=== PATIENT | male | born 1965 | race Caucasian/White ===

== ENCOUNTER → 2016-08-02 | Outpatient (REF) | payer BC | LOC: M LAB REF 12:19 | PROVIDERS: ATTEND Otolaryngology | DX: R22.9 Localized swelling, mass and lump, unspecified (principal) ==

== ENCOUNTER 2017-07-18 06:51 | Day surgery (SDC) | payer BC ==
[2017-07-18] MEDS: NS 1,000 ML IV (07:23)
[2017-07-18] MEDS ORDERED: LIDOCAINE 2% INJ 100 MG/5 ML SDV (FOR ANES.) As Ordered (07:45)
[2017-07-18] MEDS ORDERED: PROPOFOL 200 MG/20 ML VIAL As Ordered ×4 (07:45→07:53)
== END 2017-07-18 08:39 | disposition home or self-care (01) ==
LOC: M OPP 06:51
DX: Z12.11 Encounter for screening for malignant neoplasm of colon (principal); D12.2 Benign neoplasm of ascending colon; R12 Heartburn; K22.8 Other specified diseases of esophagus; K44.9 Diaphragmatic hernia without obstruction or gangrene; K31.89 Other diseases of stomach and duodenum; I10 Essential (primary) hypertension; K21.9 Gastro-esophageal reflux disease without esophagitis; Z87.891 Personal history of nicotine dependence; Z79.899 Other long term (current) drug therapy; Z80.42 Family history of malignant neoplasm of prostate
CPT/HCPCS: 45385

== ENCOUNTER → 2017-11-25 | Outpatient (REF) | payer BC | LOC: M SFHCLERA 10:31 | DX: R53.81 Other malaise (principal) ==

== ENCOUNTER → 2018-01-02 | Outpatient (REF) | payer BC | LOC: M LAB REF 18:03 | DX: D10.0 Benign neoplasm of lip (principal) | CPT/HCPCS: 88305 ==

== ENCOUNTER 2021-04-29 19:58 | Emergency (ER) | payer BC ==
[~2021-04-29] VITALS: Ht 167.6 cm; Wt 100.0 kg
[~2021-04-29 19:58] MED LIST: CENT1TAB20 PO; OMEP40CA4 PO; VERA120T71 PO
--- OUTSIDE RECORDS SUMMARY | 2021-04-29 20:05 | CCD ---
Author Author [facility] Organization [facility] Address Unknown Phone Unavailable Care Team Providers Care Meat Processor Name Role Phone Zafar Tristan M.D. Unavailable Unavailable Zafar Tristan M.D. Unavailable Unavailable Zafar Tristan M.D. Unavailable Unavailable Feola, T Jovanna PA Unavailable Unavailable Feola, T Jovanna PA Unavailable Unavailable Feola, T Jovanna PA Unavailable Unavailable Feola, T Jovanna PA Unavailable Unavailable Feola, T Jovanna PA Unavailable Unavailable Feola, T Jovanna PA Unavailable Unavailable Feola, T Jovanna PA Unavailable Unavailable Feola, T Jovanna PA Unavailable Unavailable Feola, T Jovanna PA Unavailable Unavailable Feola, T Jovanna PA Unavailable Unavailable Feola, T Jovanna PA Unavailable Unavailable Feola, T Jovanna PA Unavailable Unavailable Feola, T Jovanna PA Unavailable Unavailable Feola, T Jovanna PA Unavailable Unavailable Feola, T Jovanna PA Unavailable Unavailable Feola, T Jovanna PA Unavailable Unavailable Feola, T Jovanna PA Unavailable Unavailable Feola, T Jovanna PA Unavailable Unavailable Feola, T Jovanna PA Unavailable Unavailable Feola, T Jovanna PA Unavailable Unavailable Feola, T Jovanna PA Unavailable Unavailable Feola, T Jovanna PA Unavailable Unavailable Feola, T Jovanna PA Unavailable Unavailable Feola, T Jovanna PA Unavailable Unavailable Feola, T Jovanna PA Unavailable Unavailable Feola, T Jovanna PA Unavailable Unavailable Feola, T Jovanna PA Unavailable Unavailable Feola, T Jovanna PA Unavailable Unavailable Feola, T Jovanna PA Unavailable Unavailable Feola, T Jovanna PA Unavailable Unavailable Feola, T Jovanna PA Unavailable Unavailable Feola, T Jovanna PA Unavailable Unavailable Feola, T Jovanna PA Unavailable Unavailable Feola, T Jovanna PA Unavailable Unavailable Feola, T Jovanna PA Unavailable Unavailable Feola, T Jovanna PA Unavailable Unavailable Feola, T Jovanna PA Unavailable Unavailable Feola, T Jovanna PA Unavailable Unavailable Feola, T Jovanna PA Unavailable Unavailable Feola, T Jovanna PA Unavailable Unavailable Feola, T Jovanna PA Unavailable Unavailable Re-disclosure Warning The records that you are about to access may contain information from federally-assisted alcohol or drug abuse programs. If such information is present, then the following federally mandated warning applies: This information has been disclosed to you from records protected by federal confidentiality rules (42 CFR part 2). The federal rules prohibit you from making any further disclosure of this information unless further disclosure is expressly permitted by the written consent of the person to whom it pertains or as otherwise permitted by 42 CFR part 2. A general authorization for the release of medical or other information is NOT sufficient for this purpose. The Federal rules restrict any use of the information to criminally investigate or prosecute any alcohol or drug abuse patient.The records that you are about to access may contain highly sensitive health information, the redisclosure of which is protected by Article 27-F of the [facility] Public Health law. If you continue you may have access to information: Regarding HIV / AIDS; Provided by facilities licensed or operated by the [facility] Office of Mental Health; or Provided by the [facility] Office for People With Developmental Disabilities. If such information is present, then the following [facility] mandated warning applies: This information has been disclosed to you from confidential records which are protected by state law. State law prohibits you from making any further disclosure of this information without the specific written consent of the person to whom it pertains, or as otherwise permitted by law. Any unauthorized further disclosure in violation of state law may result in a fine or fdc sentence or both. A general authorization for the release of medical or other information is NOT sufficient authorization for further disc losure. Allergies and Adverse Reactions Type Description Substance Reaction Status Data Source(s ) Propensity to adverse reactions Propensity to adverse reacti ons No Known Intolerances [facility] Family History Family Member Name Family Member Gender Family Member Status Date o f Status Description Data Source(s) Unknown Unknown Problem [facility] ([facility]) Unknown Female Problem [facility] ([facility]) Unknown Female Problem [facility]ENT ([facility] ) [facility] Unknown Problem [facility] ([facility] Unknown [facility] Problem [facility] ([facility]) Unknown Unknown Problem [facility] ([facility]) Unknown Unknown Problem [facility] ([facility]) Unknown Unknown Problem [facility] ([facility]) Encounters Encounter Providers Location Date Indications Data Source(s ) Emergency Attender: Devin Tristan M.D. SURG-ER 01/31/2021 11:21:0 0 AM EDT [facility] Patient discharged. Emergency Attender: Devin Tristan M.D. SURG-ER 11:21:00 AM EDT - 01/31/2021 02:05:00 PM EDT [facility] Outpatient Attender: Jovanna BAILEY 021 11:18:12 AM EDT - 12/10/2020 11:52:59 AM EDT [facility] ([facility] ) Immunizations Vaccine Date Status Description Data Source(s) INFLUENZA VIRUS VACCINE QUADRIVAL [id number](6 MOS AND UP)/PF 03/04/2020 12:00:00 AM EDT completed [facility] Medications Medication Brand Name Start Date Product Form Dose Route Admi nistrative Instructions Pharmacy Instructions Status Indications Reaction Description Data Source(s) 37.5 mg 04/24/2021 12:00:00 AM EST capsule,extended releas e 24hr 30 TAKE ONE CAPSULE BY MOUTH EVERY DAY WITH FOOD TAKE ONE CAPSULE BY MOUTH EVERY DAY WITH FOOD SOLD: 04/27/2021 [facility] 40 mg 02/23/2021 12:00:00 AM EDT capsule,delayed release (DR/EC) 90 TAKE ONE CAPSULE BY MOUTH EVERY DAY TAKE ONE CAPSULE BY MOUTH EVERY DAY SOLD: 02/24/2021 [facility] 37.5 mg 02/22/2021 12:00:00 AM EDT capsule,extended releas e 24hr 30 TAKE ONE CAPSULE BY MOUTH ONCE DAILY WITH FOOD TAKE ONE CAPSULE BY MOUTH ONCE DAILY WIT H FOOD SOLD: 02/24/2021 [facility] 37.5 mg 02/22/2021 12:00:00 AM EDT capsule,extended releas e 24hr 30 TAKE ONE CAPSULE BY MOUTH ONCE DAILY WITH FOOD TAKE ONE CAPSULE BY MOUTH ONCE DAILY WIT H FOOD SOLD: 03/28/2021 [facility] 10 mg 02/11/2021 12:00:00 AM EDT tablet 57 TAKE DIRECTED 6 TABLETS BY MOUTH ONCE DAILY FOR 1 WEEK, THEN TAPER BY 1 TABLET BY MOUTH DAILY FOR THE NEXT 5 DAYS TAKE DIRECTED 6 TABLETS BY MOUTH ONCE DAILY FOR 1 WEEK, THEN TAPER BY 1 TABLET BY MOUTH DAILY FOR THE NEXT 5 DAYS SOLD: 02/11/2021 [facility] atorvastatin 20 MG Oral Tablet ATORVASTATIN CALCIUM 01/08/2021 1 2:00:00 AM EDT tablet 30 TAKE ONE TABLET BY MOUTH EVERY D AY TAKE ONE TABLET BY MOUTH EVERY DAY SOLD: 03/09/2021 [facility] atorvastatin 20 MG Oral Tablet ATORVASTATIN CALCIUM 01/08/2021 1 2:00:00 AM EDT tablet 30 TAKE ONE TABLET BY MOUTH EVERY D AY TAKE ONE TABLET BY MOUTH EVERY DAY SOLD: 02/06/2021 [facility] atorvastatin 20 MG Oral Tablet ATORVASTATIN CALCIUM 01/08/2021 1 2:00:00 AM EDT tablet 30 TAKE ONE TABLET BY MOUTH EVERY D AY TAKE ONE TABLET BY MOUTH EVERY DAY SOLD: 01/08/2021 [facility] atorvastatin 20 MG Oral Tablet ATORVASTATIN CALCIUM 01/08/2021 1 2:00:00 AM EDT tablet 30 TAKE ONE TABLET BY MOUTH EVERY D AY TAKE ONE TABLET BY MOUTH EVERY DAY SOLD: 04/08/2021 [facility] 240 mg 12/25/2020 12:00:00 AM EDT tablet extended release 30 TAKE ONE TABLET BY MOUTH EVERY DAY TAKE ONE TABLET BY MOUTH EVERY DAY SOLD: 04/27/2021 [facility] 240 mg 12/25/2020 12:00:00 AM EDT tablet extended release 30 TAKE ONE TABLET BY MOUTH EVERY DAY TAKE ONE TABLET BY MOUTH EVERY DAY SOLD: 03/28/2021 [facility] 37.5 mg 12/25/2020 12:00:00 AM EDT capsule,extended releas e 24hr 30 TAKE ONE CAPSULE BY MOUTH EVERY DAY WITH FOOD TAKE ONE CAPSULE BY MOUTH EVERY DAY WITH FOOD SOLD: 01/26/2021 [facility] 37.5 mg 12/25/2020 12:00:00 AM EDT capsule,extended releas e 24hr 30 TAKE ONE CAPSULE BY MOUTH EVERY DAY WITH FOOD TAKE ONE CAPSULE BY MOUTH EVERY DAY WITH FOOD SOLD: 12/29/2020 [facility] 240 mg 12/25/2020 12:00:00 AM EDT tablet extended release 30 TAKE ONE TABLET BY MOUTH EVERY DAY TAKE ONE TABLET BY MOUTH EVERY DAY SOLD: 01/26/2021 [facility] 240 mg 12/25/2020 12:00:00 AM EDT tablet extended release 30 TAKE ONE TABLET BY MOUTH EVERY DAY TAKE ONE TABLET BY MOUTH EVERY DAY SOLD: 12/29/2020 [facility] 240 mg 12/25/2020 12:00:00 AM EDT tablet extended release 30 TAKE ONE TABLET BY MOUTH EVERY DAY TAKE ONE TABLET BY MOUTH EVERY DAY SOLD: 02/24/2021 [facility] 800-160 mg 12/10/2020 12:00:00 AM EDT tablet 20 TAKE ONE TABLET BY MOUTH TWICE A DAY FOR 10 DAYS TAKE ONE TABLET BY MOUTH TWICE A DAY FOR 10 DAYS SOLD: 12/10/2020 [facility] 37.5 mg 10/27/2020 12:00:00 AM EDT capsule,extended releas e 24hr 30 TAKE ONE CAPSULE BY MOUTH EVERY DAY WITH FOOD TAKE ONE CAPSULE BY MOUTH EVERY DAY WITH FOOD SOLD: 10/29/2020 [facility] 37.5 mg 10/27/2020 12:00:00 AM EDT capsule,extended releas e 24hr 30 TAKE ONE CAPSULE BY MOUTH EVERY DAY WITH FOOD TAKE ONE CAPSULE BY MOUTH EVERY DAY WITH FOOD SOLD: 11/28/2020 [facility] 40 mg 08/30/2020 12:00:00 AM EDT capsule,delayed release (DR/EC) 90 TAKE ONE CAPSULE BY MOUTH EVERY DAY TAKE ONE CAPSULE BY MOUTH EVERY DAY SOLD: 08/30/2020 [facility] 40 mg 08/30/2020 12:00:00 AM EDT capsule,delayed release (DR/EC) 90 TAKE ONE CAPSULE BY MOUTH EVERY DAY TAKE ONE CAPSULE BY MOUTH EVERY DAY SOLD: 11/28/2020 [facility] 240 mg 07/30/2020 12:00:00 AM EST tablet extended release 30 TAKE ONE TABLET BY MOUTH EVERY DAY TAKE ONE TABLET BY MOUTH EVERY DAY SOLD: 11/28/2020 [facility] 240 mg 07/30/2020 12:00:00 AM EST tablet extended release 30 TAKE ONE TABLET BY MOUTH EVERY DAY TAKE ONE TABLET BY MOUTH EVERY DAY SOLD: 10/29/2020 [facility] 240 mg 07/30/2020 12:00:00 AM EST tablet extended release 30 TAKE ONE TABLET BY MOUTH EVERY DAY TAKE ONE TABLET BY MOUTH EVERY DAY SOLD: 09/29/2020 [facility] 240 mg 07/30/2020 12:00:00 AM EST tablet extended release 30 TAKE ONE TABLET BY MOUTH EVERY DAY TAKE ONE TABLET BY MOUTH EVERY DAY SOLD: 08/30/2020 [facility] 240 mg 07/30/2020 12:00:00 AM EST tablet extended release 30 TAKE ONE TABLET BY MOUTH EVERY DAY TAKE ONE TABLET BY MOUTH EVERY DAY SOLD: 07/31/2020 [facility] 37.5 mg 07/28/2020 12:00:00 AM EST capsule,extended releas e 24hr 30 TAKE ONE CAPSULE BY MOUTH EVERY DAY WITH FOOD TAKE ONE CAPSULE BY MOUTH EVERY DAY WITH FOOD SOLD: 09/29/2020 [facility] 37.5 mg 07/28/2020 12:00:00 AM EST capsule,extended releas e 24hr 30 TAKE ONE CAPSULE BY MOUTH EVERY DAY WITH FOOD TAKE ONE CAPSULE BY MOUTH EVERY DAY WITH FOOD SOLD: 08/30/2020 [facility] 37.5 mg 07/28/2020 12:00:00 AM EST capsule,extended releas e 24hr 30 TAKE ONE CAPSULE BY MOUTH EVERY DAY WITH FOOD TAKE ONE CAPSULE BY MOUTH EVERY DAY WITH FOOD SOLD: 07/31/2020 [facility] 40 mg 05/31/2020 12:00:00 AM EST capsule,delayed release (DR/EC) 90 TAKE ONE CAPSULE BY MOUTH EVERY DAY TAKE ONE CAPSULE BY MOUTH EVERY DAY SOLD: 06/03/2020 [facility] 37.5 mg 03/24/2020 12:00:00 AM EDT capsule,extended releas e 24hr 30 TAKE ONE CAPSULE BY MOUTH EVERY DAY WITH FOOD TAKE ONE CAPSULE BY MOUTH EVERY DAY WITH FOOD SOLD: 07/01/2020 [facility] 37.5 mg 03/24/2020 12:00:00 AM EDT capsule,extended releas e 24hr 30 TAKE ONE CAPSULE BY MOUTH EVERY DAY WITH FOOD TAKE ONE CAPSULE BY MOUTH EVERY DAY WITH FOOD SOLD: 05/30/2020 [facility] 37.5 mg 03/24/2020 12:00:00 AM EDT capsule,extended releas e 24hr 30 TAKE ONE CAPSULE BY MOUTH EVERY DAY WITH FOOD TAKE ONE CAPSULE BY MOUTH EVERY DAY WITH FOOD SOLD: 04/29/2020 [facility] 37.5 mg 03/24/2020 12:00:00 AM EDT capsule,extended releas e 24hr 30 TAKE ONE CAPSULE BY MOUTH EVERY DAY WITH FOOD TAKE ONE CAPSULE BY MOUTH EVERY DAY WITH FOOD SOLD: 03/29/2020 [facility] 240 mg 01/23/2020 12:00:00 AM EDT tablet extended release 30 TAKE ONE TABLET BY MOUTH EVERY DAY TAKE ONE TABLET BY MOUTH EVERY DAY SOLD: 05/30/2020 [facility] 240 mg 01/23/2020 12:00:00 AM EDT tablet extended release 30 TAKE ONE TABLET BY MOUTH EVERY DAY TAKE ONE TABLET BY MOUTH EVERY DAY SOLD: 04/29/2020 [facility] 240 mg 01/23/2020 12:00:00 AM EDT tablet extended release 30 TAKE ONE TABLET BY MOUTH EVERY DAY TAKE ONE TABLET BY MOUTH EVERY DAY SOLD: 03/29/2020 [facility] 240 mg 01/23/2020 12:00:00 AM EDT tablet extended release 30 TAKE ONE TABLET BY MOUTH EVERY DAY TAKE ONE TABLET BY MOUTH EVERY DAY SOLD: 07/01/2020 [facility] 40 mg 11/16/2019 12:00:00 AM EDT capsule,delayed release (DR/EC) 90 TAKE 1 CAPSULE BY MOUTH ONCE A DAY TAKE 1 CAPSULE BY MOUTH ONCE A DAY SOLD: 03/04/2020 [facility] Insurance Providers Payer name Policy type / Coverage type Policy ID Covered constitution party ID Covered constitution party's relationship to millan Policy Millan Plan Information [facility] FEDERAL EMPLOYEE PROGRAM [id number] Formerly [facility] and Blue Shield - [place] Blue Cross/B lue Shield [id number] Self [id number] [employer] FEP BS [id number] 18 [id number] BLUE CROSS BLUE SHIELD FEDERAL -O/P [id number] 18 [id number] BLUE [employer]OSS BLUE SHIELD FEDERAL-RECURRING [id number] 18 [id number] BLUE CROSS BLUE SHIELD FEDERAL -CLINIC [id number] 18 [id number] [employer] BLUES[place] BS [id number] 18 [id number] EMPIRE BLUE CROSS BLUE SHIELD -O/P [id number] 18 [id number] [employer] BLUES[place] BS UNAVAILABLE 18 UNAVAILABLE ANSI-Not a Secondary Insurance [id number] ANSI-Not a Secondary Insurance [id number] ANSI-Not a Secondary Insurance [id number] ANSI-Not a Secondary Insurance [id number] ANSI-Not a Secondary Insurance [id number] ANSI-Not a Secondary Insurance [id number] ANSI-Not a Secondary Insurance [id number] ANSI-Not a Secondary Insurance [id number] ANSI-Not a Secondary Insurance [id number] ANSI-Not a Secondary Insurance [id number] ANSI-Not a Secondary Insurance [id number] ANSI-Not a Secondary Insurance [id number] ANSI-Not a Secondary Insurance [id number] ANSI-Not a Secondary Insurance [id number] ANSI-Not a Secondary Insurance [id number] ANSI-Not a Secondary Insurance [id number] ANSI-Not a Secondary Insurance [id number] ANSI-Not a Secondary Insurance [id number] ANSI-Not a Secondary Insurance [id number] ANSI-Not a Secondary Insurance [id number] ANSI-Not a Secondary Insurance [id number] ANSI-Not a Secondary Insurance [id number] ANSI-Not a Secondary Insurance [id number] ANSI-Not a Secondary Insurance [id number] ANSI-Not a Secondary Insurance [id number] ANSI-Not a Secondary Insurance [id number] ANSI-Not a Secondary Insurance [id number] ANSI-Not a Secondary Insurance [id number] ANSI-Not a Secondary Insurance [id number] ANSI-Not a Secondary Insurance [id number] ANSI-Not a Secondary Insurance [id number] ANSI-Not a Secondary Insurance [id number] ANSI-Not a Secondary Insurance [id number] ANSI-Not a Secondary Insurance [id number] ANSI-Not a Secondary Insurance [id number] ANSI-Not a Secondary Insurance [id number] ANSI-Not a Secondary Insurance [id number] ANSI-Not a Secondary Insurance [id number] ANSI-Not a Secondary Insurance [id number] ANSI-Not a Secondary Insurance [id number] ANSI-Not a Secondary Insurance [id number] ANSI-Not a Secondary Insurance [id number] [facility] Health Maintenance Organization ([facility] [id number] Self [id number] [facility] EMPLOYEE PROGRAM [id number] SP [id number] [facility] Commercial [id number] Self [id number] [employer] [facility] [id number] SP [id number] [facility] Health Maintenance Organization ([facility]) [id number] Self [id number] [facility] Health Maintenance Organization ([facility]) [id number] Self [facility] Plan Commercial [id number] Self [facility] EMPLOYEE PROGRAM [id number] SP [id number] [facility] [id number] SP [id number] [facility] [id number] SP [id number] Problems, Conditions, and Diagnoses No Information Surgeries/Procedures No Information Results ID Date Data Source [id number] 01/31/2021 12:16:00 PM EDT [facility]. HEAD CT SCANThere is no focal lesion of abnormal increased or decreased density.There is some physiologic mild calcification at the basal gangliabilaterally. There is no mass, mass effect, midline shift, extraaxialfluid collection or intracranial hemorrhage. The ventricles are normalsize and configuration. The orbits are unremarkable. There is mildmucosal thickening at the ethmoidal air cells. No suspicious osseouslesion or acute fracture is seen.IMPRESSION: NO ACUTE DISEASE PROCESS.Dictated on 01/31/21 1216 by Vinod White M.D.Transcribed on 02/01/21 1411 by Lakeisha Kraus MSign by Vinod White M.D. on 02/02/21 1152Sign by: Vinod White M.D. Name Value Range Interpretation Code Description Data Analisa rce(s) Supporting Document(s) Procedure Social History No Information
--- OUTSIDE RECORDS SUMMARY | 2021-04-29 20:05 | CCD | Continuity of Care Document ---
Author Author [facility] [place] [address] Care Team Providers Care Clinical Services Manager Name Role Phone NONE Unavailable Unavailable Insurance Providers Payer Name Policy Number Subscriber Name Relationship [facility] [id number] HEMANTH CHOI SELF Advance Directives Directive Response Recorded Date/Time Existing Advanced Directive: N 01/31/21 11 :21am Chief Complaint and Reason for Visit Reason for Visit DROOPING FACE, Problems No problem information available. Medications No medication information available. Social History No social history. Hospital Discharge Instructions No hospital discharge instructions. Plan of Care Discharge Date 01/31/21 Disposition HOME/SELF CARE Prescriptions See Medications Section Functional Status No functional status results. Allergies, Adverse Reactions, Alerts Allergen Type Severity Reaction Status Last Updated No Known Intolerances Allergy Unknown Active Immunizations No Known History of Immunizations. Vital Signs No Known Vital Signs Results. Results Laboratory Results Test Name Result Units Flags Reference Collection Date/Time Result Date/Time Comments White Blood Count 12.25 x10E3/ul H 3.80-10.80 01/31/21 11 :30am 01/31/21 11:53am Red Blood Count 5.07 x10E6/ul 4.69-6.13 01/31/21 11:30am /07/03 11:53am Hemoglobin 15.6 g/dl 14.1-18.1 01/31/21 11:30am 01/31/21 1 1:53am Hematocrit 43.9 % 43.5-53.7 01/31/21 11:30am 01/31/21 1 1:53am Mean Corpuscular Volume 87 fl 80-97 01/31/21 11:30am 01/31/21 11:53am Mean Corpuscular Hemoglobin 30.8 pg 27.0-31.2 11:30am 01/31/21 11:53am Bedside Mean Corpuscular Hgb Conc 35.5 g/dl H 31.8-3 5.4 01/31/21 11:30am 01/31/21 11:53am Red Cell Distribution Width 13.6 % 9.0-16.0 01/31/21 11 :30am 01/31/21 11:53am Platelet Count 350 x10E3/ul 150-400 01/31/21 11:30am 1 11:53am Mean Platelet Volume 8.0 fl 7.2-11.1 01/31/21 11:30am 0 01/31/21 11:53am Neutrophils % 57.5 % 37.0-74.9 01/31/21 11:30am 1 11:53am Lymphocytes % 28.4 % 10.0-50.0 01/31/21 11:30am 1 11:53am Monocytes % 9.3 % 0.0-12.0 01/31/21 11:30am 01/31/21 1 1:53am Eosinophils % 3.9 % 0.0-7.0 01/31/21 11:30am 01/31/21 11:53am Basophils % 0.6 % 0.0-2.5 01/31/21 11:30am 01/31/21 11 :53am Immature Granulocytes % 0.3 % 0-2 01/31/21 11:30am 01/31/21 11:53am Nucleated Red Blood Cells % 0 % 0-0 01/31/21 11: 30am 01/31/21 11:53am Neutrophils # 7.0 X10E3/ul H 2.0-6.9 01/31/21 11:30am 01/31/21 11:53am Lymphocytes # 3.5 X10E3/ul H 0.6-3.4 01/31/21 11:30am 01/31/21 11:53am Monocytes # 1.1 X10E3/ul H 0.0-0.9 01/31/21 11:30am 01/31/21 1 1:53am Eosinophils # 0.5 X10E3/ul 0.0-0.7 01/31/21 11:30am 01/31/21 11:53am Basophils # 0.1 X10E3/ul 0.0-0.2 01/31/21 11:30am 01/31/21 1 1:53am Immature Granulocytes % 0.0 X10E3/ul 0.0-0.5 11:30am 01/31/21 11:53am Nucleated Red Blood Cells # 0.0 X10E3/ul 0.0-0.5 11:30am 01/31/21 11:53am Prothrombin Time 11.9 Seconds 9.4-12.5 01/31/21 11:30am 01/31 11:57am INR International Normalized Ratio 1.09 01/31 11:30am 01/31/21 11:57am The use of the INR is restricted to patients on stable oral anticoagulant. Therapeutic Range: 2.0-3.0 High Risk Values: 2.5-3.5 Activated Partial Thromboplast Time 33.6 Seconds 25.1 -36.5 01/31/21 11:30am 01/31/21 11:57am The above reference range for aPTT is ba sed on patients that are NOT on Heparin Therapy. Glucose Level 119 mg/dL H 74-106 01/31/21 11:30am 01/31/21 12:19pm Blood Urea Nitrogen 13 mg/dL -18 01/31/21 11:30am 12:19pm Creatinine 1.06 mg/dL 0.55-1.30 01/31/21 11:30am 01/31/21 1 2:19pm It has been demonstrated with our laboratory's methodology for CREATININE testing that patients on N-Acetylcysteine and/or Metamizole (Dipyrone) therapy will show falsely depressed values. Estimat Glomerular Filtration Rate 72 mL/min >60 01/31/21 11:30am 01/31/21 12:19pm Sodium Level 142 mmol/L 136-145 01/31/21 11:30am 01/31/21 1 2:19pm Potassium Level 3.9 mmol/L 3.5-5.1 01/31/21 11:30am 1 12:19pm Chloride Level 109 mmol/L 96-109 01/31/21 11:30am 01/31/21 12:19pm Carbon Dioxide Level 27 mmol/L 21-32 01/31/21 11:30am 12:19pm Anion Gap 6 mmol/L 3-11 01/31/21 11:30am 01/31/21 12:1 9pm Calcium Level 9.5 mg/dL 8.1-9.7 01/31/21 11:30am 01/31/21 12:19pm Procedures No Known History of Procedures. Encounters Encounter Location Arrival/Admit Date Discharge/Depart Date Attending Provider Departed Emergency [facility] 01/31/21 11:21am 01/31/21 2:05p Devin Bryan M.D.
[2021-04-29 20:43] LABS: BASO # 0.1 10^3/uL (0.0-0.2); BASO % 0.6 % (0.0-1.0); EOS # 0.4 10^3/uL (0.0-0.5); EOS % 2.9 % (0.0-3.0); HEMATOCRIT 44.2 % (42.0-52.0); HEMOGLOBIN 15.2 g/dl (13.5-17.5); LYMPH # 4.7 10^3/uL (1.5-5.0); MEAN CORPUSCULAR HEMOGLOBIN 30.4 pg (27.0-33.0); MEAN CORPUSCULAR HGB CONC 34.4 g/dl (32.0-36.5); MEAN CORPUSCULAR VOLUME 88.4 fl (80.0-96.0); MONO # 1.4 10^3/uL (0.0-0.8); MONO % 11.2 % (2.0-8.0); NEUTROPHILS # 6.1 10^3/uL (1.5-8.5); NEUTROPHILS % 48.1 % (36.0-66.0); PLATELET COUNT, AUTOMATED 323 10^3/uL (150-450); WHITE BLOOD COUNT 12.8 10^3/uL (4.0-10.0)
--- NOTE | 2021-04-29 20:46 | REP ---
INDICATION: CHEST PAIN COMPARISON: None. TECHNIQUE: Portable AP view of the chest FINDINGS: The mediastinum and cardiac silhouette are within normal limits for portable technique. The lung rasmussen are clear without acute consolidation, effusion, or pneumothorax. Skeletal structures are intact. IMPRESSION: No acute cardiopulmonary process appreciated. <Electronically signed by Vik Javed > 04/29/21 [id number]
[2021-04-29 21:08] LABS: CK-MB VALUE MASS 1.5 NG/ML (<3.6); MB/CK RELATIVE INDEX 1.18 (< OR =4); TROPONIN I 0.15 NG/ML (< 0.10)
[2021-04-29 21:12] LABS: ALBUMIN 3.6 GM/DL (3.2-5.2); ALT/SGPT 61 U/L (12-78); BILIRUBIN,TOTAL 0.3 MG/DL (0.2-1.0); BLOOD UREA NITROGEN 11 MG/DL (7-18); CALCIUM LEVEL 9.4 MG/DL (8.5-10.1); CARBON DIOXIDE LEVEL 27 MEQ/L (21-32); CHLORIDE LEVEL 111 MEQ/L (98-107); CREATININE FOR GFR 0.95 MG/DL (0.70-1.30); GLOMERULAR FILTRATION RATE > 60.0 (>56); GLUCOSE, FASTING 83 MG/DL (70-100); NT-PRO BNP 125 PG/ML (<125); POTASSIUM SERUM 4.5 MEQ/L (3.5-5.1); SODIUM LEVEL 143 MEQ/L (136-145); TOTAL PROTEIN 6.7 GM/DL (6.4-8.2)
[2021-04-29 21:13] LABS: BILIRUBIN,DIRECT < 0.1 MG/DL (0.0-0.2)
[2021-04-29] MEDS ORDERED: ASPIRIN 81 MG CHEW TABLET PO ONE (21:40)
[2021-04-29 21:43] LABS: RSV AMPLIFICATION NEGATIVE (NEGATIVE)
[2021-04-29] MEDS ORDERED: ISOVUE-370 76% 100ML VIAL As Ordered ONE (21:46)
[2021-04-29 22:00] LABS: ERYTHROCYTE SEDIMENTATION RATE 4 mm/hr (0-20)
[2021-04-29 22:03] LABS: C REACTIVE PROTEIN QUANTITATIV < 0.30 MG/DL (0.00-0.30)
--- NOTE | 2021-04-29 22:34 | REPVR ---
PROCEDURE INFORMATION: Exam: CTA Chest with Contrast Exam date and time: 04/29/21 (9:53pm) Age: 55 years old Clinical indication: Angina pectoris TECHNIQUE: Imaging protocol: Computed tomographic angiography of the chest with contrast 3D rendering (Not supervised by radiologist): MIP and/or 3D reconstructed images were created by the technologist. Radiation optimization: All CT scans at this facility use at least one of these dose optimization techniques: automated exposure control; mA and/or kV adjustment per patient size (includes targeted exams where dose is matched to clinical indication); or iterative reconstruction. Contrast material: Isovue 370 Contrast volume: 75 ml Contrast route: IV COMPARISON: Portable CXR of 04/29/21 FINDINGS: Pulmonary arteries: Normal. No pulmonary emboli. Aorta: Unremarkable. No aortic aneurysm. No aortic dissection. Lungs: Unremarkable. No consolidation. No masses. Pleural spaces: Unremarkable. No pneumothorax. No pleural effusions. Heart: Unremarkable. No cardiomegaly. No pericardial effusion. Lymph nodes: Unremarkable. No enlarged lymph nodes. Bones/joints: Unremarkable. No acute fracture. Soft tissues: Unremarkable. Upper abdomen: Distended stomach, filled with food debris. S/P cholecystectomy. IMPRESSION: No acute findings. No filling defects suspicious for pulmonary emboli are seen. There is no CT evidence of aortic dissection nor leakage. No aortic aneurysm is appreciated. Electronically signed by: Elaine Alas On 04/29/2021 22:34:12 PM
--- OUTSIDE RECORDS SUMMARY | 2021-04-29 23:00 | CCD ---
Author Author [facility] Organization [facility] Address Unknown Phone Unavailable Care Team Providers Care Contract Administration Specialist Name Role Phone Zafar Tristan M.D. Unavailable [...] is protected by Article 27-F of the [facility] Public Health law. If you continue you may have access to information: Regarding HIV / AIDS; Provided by facilities licensed or operated by the [facility] Office of Mental Health; or Provided by the [facility] Office for People With Developmental Disabilities. If such information is present, then the following [facility] mandated warning applies: This information has been [...] law may result in a fine or assisted sentence or both. A general authorization for the release of medical or other information is NOT sufficient authorization for further disc losure. Allergies and Adverse Reactions Type Description Substance Reaction Status Data Source(s ) Propensity to adverse reactions Propensity to adverse reacti ons No Known Intolerances [facility] Family History Family Member Name Family Member Gender Family Member Status Date o f Status Description Data Source(s) Unknown Unknown Problem [facility] ([facility]) Unknown Female Problem [facility] ([facility]) Unknown Female Problem [facility] ([facility] ) Unknown Unknown [...] M.D. SURG-ER 01/31/2021 11:21:0 0 AM EDT [facility] Patient discharged. Emergency Attender: Devin Tristan M.D. SURG-ER 11:21:00 AM EDT - 01/31/2021 02:05:00 PM EDT [facility] Outpatient Attender: Jovanna BAILEY 021 11:18:12 AM EDT - 12/10/2020 11:52:59 AM EDT [facility] ([facility] ) Immunizations Vaccine Date Status Description Data Source(s) INFLUENZA VIRUS VACCINE QUADRIVAL [id number](6 MOS AND UP)/PF 03/04/2020 12:00:00 AM EDT completed [facility] Medications Medication Brand Name Start Date [...] TABLET BY MOUTH EVERY DAY SOLD: 04/27/2021 [facility] 240 mg 12/25/2020 12:00:00 AM [...] type / Coverage type Policy ID Covered libertarian ID Covered libertarian's relationship to millan Policy Millan Plan Information [facility] FEDERAL EMPLOYEE PROGRAM [id number] [facility] and Blue Shield - [place] Blue Cross/B lue Shield [id number] Self [id number] [employer] FEP BS [id number] 18 [id number] [employer] BLUE SHIELD FEDERAL -O/P [id number] 18 [id number] [employer] BLUE SHIELD FEDERAL-RECURRING [id number] 18 [id number] [employer] BLUE SHIELD FEDERAL -CLINIC [id number] 18 [id number] [employer] [place]UES[place] BS [id number] 18 [id number] [employer] BLUE CROSS BLUE SHIELD -O/P [id number] 18 [id number] [employer] BLUES[place] BS UNAVAILABLE 18 UNAVAILABLE ANSI-Not a Secondary Insurance [id number] ANSI-Not a Secondary Insurance [id number] ANSI-Not a Secondary Insurance [id number] ANSI-Not a Secondary Insurance [id number] ANSI-Not a Secondary Insurance [id number] ANSI-Not a Secondary Insurance [id number] ANSI-Not a Secondary [id number] ANSI-Not a Secondary Insurance [id number] ANSI-Not a Secondary Insurance [id number]-[id number] ANSI-Not a Secondary Insurance [id number] ANSI-Not a Secondary Insurance [id number]-[id number] ANSI-Not a Secondary Insurance [id number] [id number] [id number]-q381-nq1px0bk8ymf ANSI-Not a Secondary Insurance [id number] ANSI-Not a Secondary Insurance [id number]-[id number] [id number]-e735-557y-[id number] ANSI-Not a Secondary Insurance [id number]-k532-11pw-[id number] ANSI-Not a Secondary Insurance [id number]-[id number]-[id number]-[id number] ANSI-Not a Secondary Insurance [id number]-k5f4-60v5-8b82-9bh53 [id number] 74o30s42-[id number] ANSI-Not a Secondary Insurance [id number]-skf3-f6b1d [id number]-mht4-r4b3hf6415fe ANSI-Not a Secondary Insurance [id number]-216c-93l4-45p3j [id number]-309z-009i-57s6-35x4fb8g6294 ANSI-Not a Secondary Insurance [id number]-89i4-5511c [id number] [id number]-[id number]-93t2-2467h33f4k60 ANSI-Not a Secondary Insurance [id number]-o5rb-941i-[id number] 79a9d3x gw582zj9-s5su-824f-1135-3q34374o4h6e ANSI-Not a Secondary Insurance [id number]-x168-2r04-0762-z534f [id number] z40h90jo-p531-1c85-9119-i220us5s9643 ANSI-Not a Secondary Insurance [id number]-e19h-45cn-i582-07eis [id number] l66j54v4-n80g-08ii-r192-67grx07n259v ANSI-Not a Secondary Insurance [id number]-w907-830mr [id number] [id number]-t9q0-4102-i222-025no4749fs4 ANSI-Not a Secondary Insurance [id number]-u310-7762-0417-l83qq 918mf79 0i0c0928-z285-8530-1208-x69pz033dy14 ANSI-Not a Secondary Insurance [id number]-51yn-08w2-854b-mnij4 t4c6ypg 2251bv8m-77pv-73n5-055q-kqlk7v2n6pbm ANSI-Not a Secondary Insurance [id number]-9k86-8tz4-6h5d-7807c [id number] 86w69m3u-0v50-3tt0-8u8h-4217wf1c02ly ANSI-Not a Secondary Insurance 69608npy-79be-14og-4je2-fd577 [id number] 28395mhh-88ta-92xb-2ks0-gn4799562g37 ANSI-Not a Secondary Insurance [id number]-r406-38bw-z58g-l9279 35pg09x 36p6k640-e633-39md-v24a-j995281yk05q ANSI-Not a Secondary Insurance [id number]-3935-0849-1845j 16r696n 15n39o11-599h-0777-2915-6713m45z474d ANSI-Not a Secondary Insurance [id number]-d502-399z5 a2pb1xu 4c4960o5-34z6-0c27-e779-556y3x0ip2vx ANSI-Not a Secondary Insurance [id number]-plt2-8i26-17z6-re973 dhb4861 1ga11892-shc2-3l75-29h0-pk703zvz4622 ANSI-Not a Secondary Insurance 9m5g03ah-136v-57be-ujxy-414bw 9s3ig6n 0z4d48cj-529a-46kc-xdlq-721mz1g0ih2r ANSI-Not a Secondary Insurance [id number]-9t6w-5531-6kg7-0tp28 [id number] [id number]-5z4q-3927-2gq1-0hq778e9wb54 ANSI-Not a Secondary Insurance 5mj383b6-0b4q-2468-xf2i-d339w 09182xn 9qb528v6-6q7r-4747-xq8s-e791g27735vg ANSI-Not a Secondary Insurance 4v201u66-9861-07ce-d88s-499z9 3a49l54 5q923e47-9129-75rm-d87y-260l56k65x66 ANSI-Not a Secondary Insurance a2ei5vfe-3b05-35il-9845-4jdqn [id number] s2sg7gwh-3z89-40nx-6182-5nooc12152c0 ANSI-Not a Secondary Insurance 8gd11tkm-8p0r-235q-mt76-qk9pc 1ykc2r2 9pu65lae-2v2d-096m-vs64-td8da9kxz8z9 ANSI-Not a Secondary Insurance [id number]-[id number]-zx37-01k43 [id number] [id number]-qr29-60l0-cu68-72k73800c854 ANSI-Not a Secondary Insurance [id number]-107e-4073-5389-4501v p49048p 0r21nw0v-272z-6287-4136-9557ys93565q ANSI-Not a Secondary Insurance e43a99q3-t14z-0xbu-43b4-f8n90 hp653c6 b99y98g2-q93n-9fbr-31i2-b6q02av848v5 ANSI-Not a Secondary Insurance e83g7u83-k545-4028-56cr-8695e [id number] [facility] Health Maintenance Organization ([facility]) [id number] [facility] FEDERAL EMPLOYEE PROGRAM [id number] SP [id number] [facility] Commercial [id number] Self [id number] [facility] [id number] SP [id number] [facility] Health Maintenance Organization ([facility]) [id number] Self [id number] [facility] Health Maintenance Organization ([facility]) [id number] Self [facility] Plan Commercial [id number] Self [facility] EMPLOYEE PROGRAM [id number] SP [id number] [facility] [id number] SP [id number] [facility] [id number] SP [id number] Problems, Conditions, and Diagnoses No Information Surgeries/Procedures No Information Results ID Date Data Source [id number] 01/31/2021 12:16:00 PM EDT [facility] [place] HEAD CT SCANThere is no focal lesion [...]
[2021-04-29 23:44] LABS: CK-MB VALUE MASS 1.7 NG/ML (<3.6); MB/CK RELATIVE INDEX 1.63 (< OR =4)
[2021-04-29 23:59] LABS: TROPONIN I 0.15 NG/ML (< 0.10)
[2021-04-30] MEDS ORDERED: ASPI81TA26 PO (00:09)
[2021-04-30 00:59] VITALS: BP 140/90
--- NOTE | 2021-05-02 07:42 | ECGEPIP ---
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
--- NOTE | 2021-05-02 07:43 | ECGEPIP ---
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
== END 2021-04-30 01:00 | disposition home or self-care (01) ==
LOC: M ED 19:58
DX: R07.89 Other chest pain (principal); I10 Essential (primary) hypertension; E78.5 Hyperlipidemia, unspecified; F17.200 Nicotine dependence, unspecified, uncomplicated; Z79.82 Long term (current) use of aspirin; Z79.899 Other long term (current) drug therapy
CPT/HCPCS: 36415; 71045; 71275; 80048; 80076; 82550; 82553; 83880; 84484; 85025; 85652; 86140; 87631; 93005; 93041; 94760; 99285; Q9967

== ENCOUNTER → 2023-04-11 | Outpatient (CLI) | payer BC ==
[~2023-04-11] MED LIST changes: +ASPI81TA26 PO
== END ==
LOC: M RAD 17:21
PROVIDERS: ATTEND Family Medicine
DX: F17.210 Nicotine dependence, cigarettes, uncomplicated (principal)

== ENCOUNTER → 2024-05-08 | Outpatient (CLI) | payer BC | LOC: M RAD 15:47 | PROVIDERS: ATTEND Family Medicine | DX: Z87.891 Personal history of nicotine dependence (principal) ==

== ENCOUNTER → 2025-05-13 | Outpatient (CLI) | payer BC | LOC: M RAD 08:55 | PROVIDERS: ATTEND Family Medicine | DX: Z12.2 Encounter for screening for malignant neoplasm of respiratory organs (principal); F17.210 Nicotine dependence, cigarettes, uncomplicated ==

== ENCOUNTER → 2025-05-27 | Outpatient (CLI) | payer BC | LOC: M PLAIMG 08:24 | PROVIDERS: ATTEND Family Medicine | DX: R01.1 Cardiac murmur, unspecified (principal) ==